=== PATIENT | female | born 1950 | race Hispanic/Latino ===

== ENCOUNTER → 2018-08-02 | Outpatient (CLI) | payer OTHER | END | disposition home or self-care (01) | LOC: SHCH 12:46 | PROVIDERS: ATTEND Internal Medicine Cardiovascular Disease | DX: I08.2 Rheumatic disorders of both aortic and tricuspid valves (principal) | CPT/HCPCS: 93306 ==

== ENCOUNTER → 2018-08-06 | Outpatient (CLI) | payer OTHER ==
[~2018-08-06] MED LIST: REGADENOSON 0.4 MG/5 ML PF SYG IVP SCH
== END | disposition home or self-care (01) ==
LOC: EDSEX → SHCH 08:09
PROVIDERS: ATTEND Internal Medicine Cardiovascular Disease
DX: R07.9 Chest pain, unspecified (principal)
CPT/HCPCS: 78452; 93017; 96374; A9500 ×2

== ENCOUNTER → 2018-08-08 | Outpatient (CLI) | payer OTHER | END | disposition home or self-care (01) | LOC: SHCH 14:56 → EDSEX 14:56 | PROVIDERS: ATTEND Internal Medicine Cardiovascular Disease | DX: R09.89 Other specified symptoms and signs involving the circulatory and respiratory systems (principal) | CPT/HCPCS: 93880 ==

== ENCOUNTER → 2018-08-29 | Outpatient (CLI) | payer OTHER ==
[~2018-08-29] MED LIST changes: +IOHEXOL-350 50ML VIAL IV ONE; -REGADENOSON 0.4 MG/5 ML PF SYG IVP SCH
== END | disposition home or self-care (01) ==
LOC: RAH 07:55
PROVIDERS: ATTEND Internal Medicine Cardiovascular Disease
DX: I65.23 Occlusion and stenosis of bilateral carotid arteries (principal); I70.90 Unspecified atherosclerosis; M47.892 Other spondylosis, cervical region
CPT/HCPCS: 70498; Q9967

== ENCOUNTER → 2019-03-20 | Outpatient (CLI) | payer OTHER ==
[~2019-03-20] MED LIST changes: +ASPI-555 PO; +ATOR40TA69 PO; +ENAL5TAB PO; +FURO20TA6 PO; -IOHEXOL-350 50ML VIAL IV ONE; +METF-446 PO; +METO25 PO; +NITR0.4T50 SL; +PRAV80TA21 PO; +TRAM50TA4 PO
== END | disposition home or self-care (01) ==
LOC: SHCH 08:02
PROVIDERS: ATTEND Internal Medicine Cardiovascular Disease
DX: I11.9 Hypertensive heart disease without heart failure (principal); I34.0 Nonrheumatic mitral (valve) insufficiency; Z95.2 Presence of prosthetic heart valve
CPT/HCPCS: 93306

== ENCOUNTER → 2019-06-02 | Outpatient (CLI) | payer OTHER ==
[~2019-06-02] VITALS: Ht 167.6 cm; Wt 64.9 kg
[~2019-06-02] MED LIST changes: +CLOP75TA32 PO; +ENAL10TA PO; +FURO40TA5 PO; +METO25TA6 PO; +NPH,100V SQ; +SODIUM CHLORIDE 0.9% 1000ML 1,000 ML IV SCH
[2019-06-02 13:30] LABS: BASOPHILS % (AUTO) 0.3 % (0.0-5.0); EOSINOPHILS % (AUTO) 0.6 % (0.0-8.0); HEMATOCRIT 40.3 % (42-54); LYMPHOCYTES % (AUTO) 17.6 % (21.0-51.0); MEAN CORPUSCULAR HEMOGLOBIN 31.2 pg (27.0-33.0); MEAN CORPUSCULAR HGB CONC 33.9 g/dL (32.0-36.0); MONOCYTES % (AUTO) 7.6 % (3.0-13.0); NEUTROPHILS % (AUTO) 73.9 % (40.0-77.0); PLATELET COUNT (AUTO) 333 K/uL (130-400); RED BLOOD CELL COUNT(AUTO) 4.38 MIL/uL (4.50-6.20); RED CELL DISTRIBUTION WIDTH 13.8 % (11.0-15.5); WHITE BLOOD COUNT (AUTO) 8.5 K/uL (4.8-10.8)
[2019-06-02 13:32] LABS: APPEARANCE,URINE Clear (CLEAR); BILIRUBIN,URINE Negative (NEGATIVE); COLOR,URINE Yellow (YELLOW); GLUCOSE, URINE (UA) Negative (NEGATIVE); KETONES,URINE Negative (NEGATIVE); LEUKOCYTE ESTERASE ,URINE Negative (NEGATIVE); NITRATE,URINE Negative (NEGATIVE); OCCULT BLOOD,URINE Negative (NEGATIVE); PH,URINE 7.5 (5.0-8.0); PROTEIN,URINE Negative (NEGATIVE)
[2019-06-02 13:36] LABS: CREATININE 0.9 mg/dL (0.5-1.5); POTASSIUM 4.6 mmol/L (3.5-5.1)
[2019-06-02 13:41] VITALS: BP 136/61
[2019-06-02 13:42] LABS: INR 1.06 (0.85-1.15); PARTIAL THROMBOPLASTIN TIME 28.1 SEC (26.3-35.5); PROTHROMBIN TIME 11.1 SEC (9.6-11.6)
== END | disposition home or self-care (01) ==
LOC: DAH 10:00 → EDSTATUS 12:00
PROVIDERS: ATTEND Internal Medicine Cardiovascular Disease
DX: Z01.818 Encounter for other preprocedural examination (principal); I65.23 Occlusion and stenosis of bilateral carotid arteries; M47.814 Spondylosis without myelopathy or radiculopathy, thoracic region; I70.0 Atherosclerosis of aorta; J98.11 Atelectasis; I21.9 Acute myocardial infarction, unspecified
CPT/HCPCS: 36415; 71045; 80048; 81003; 85025; 85610; 85730; 86850; 86900; 86901; 86922; 93005

== ENCOUNTER 2019-06-25 07:00 | Inpatient (IN) | payer OTHER ==
[~2019-06-25] VITALS: Ht 167.6 cm; Wt 70.3 kg
[~2019-06-25 07:00] MED LIST changes: -ENAL5TAB PO; -FURO20TA6 PO; -METO25 PO; -PRAV80TA21 PO; -SODIUM CHLORIDE 0.9% 1000ML 1,000 ML IV SCH
[2019-06-25 09:28] LABS: BASOPHILS % (AUTO) 0.4 % (0.0-5.0); EOSINOPHILS % (AUTO) 2.3 % (0.0-8.0); LYMPHOCYTES % (AUTO) 26.1 % (21.0-51.0); MEAN CORPUSCULAR HEMOGLOBIN 31.4 pg (27.0-33.0); MEAN CORPUSCULAR HGB CONC 33.6 g/dL (32.0-36.0); MEAN CORPUSCULAR VOLUME 93.4 fL (79-99); MONOCYTES % (AUTO) 10.3 % (3.0-13.0); NEUTROPHILS % (AUTO) 60.9 % (40.0-77.0); PLATELET COUNT (AUTO) 291 K/uL (130-400); RED BLOOD CELL COUNT(AUTO) 4.06 MIL/uL (4.50-6.20); RED CELL DISTRIBUTION WIDTH 13.8 % (11.0-15.5); WHITE BLOOD COUNT (AUTO) 8.1 K/uL (4.8-10.8)
[2019-06-25 09:32] LABS: APPEARANCE,URINE Clear (CLEAR); BILIRUBIN,URINE Negative (NEGATIVE); COLOR,URINE Dark Yellow (YELLOW); GLUCOSE, URINE (UA) Negative (NEGATIVE); KETONES,URINE Negative (NEGATIVE); LEUKOCYTE ESTERASE ,URINE Negative (NEGATIVE); NITRATE,URINE Negative (NEGATIVE); OCCULT BLOOD,URINE Negative (NEGATIVE); PROTEIN,URINE Trace mg/dL (NEGATIVE)
[2019-06-25 09:40] LABS: CREATININE 0.9 mg/dL (0.5-1.5); POTASSIUM 4.3 mmol/L (3.5-5.1)
[2019-06-25 09:43] LABS: INR 1.02 (0.85-1.15); PARTIAL THROMBOPLASTIN TIME 26.8 SEC (26.3-35.5); PROTHROMBIN TIME 10.7 SEC (9.6-11.6)
[2019-06-25 10:03] LABS: BACTERIA,URINE Rare /HPF (None Seen); MUCUS,URINE Many LPF (None Seen); RBC,URINE 0-1 /HPF (0-1); SQUAMOUS EPITHELIAL CELL,UR Rare /HPF (0-2)
--- NOTE | 2019-06-25 10:55 | NUR ---
SPOKE TO NAVEEN BENITES, CHEST XRAY FROM 06-02-19 OK, NO NEW CHEST XRAY NEEDED
[2019-06-25 11:00] VITALS: BP 144/72
[2019-06-27] VITALS (55 sets, daily range): BP systolic 97–172; BP diastolic 42–92
[2019-06-27] MEDS ORDERED: SODIUM CHLORIDE 0.9% 1000ML 1,000 ML IV ONE (05:58)
[2019-06-27] MEDS ORDERED: MIDAZOLAM HCL 1 MG/ML 2ML VIAL ONE (07:10)
[2019-06-27] MEDS ORDERED: LIDOCAINE PF 2% 5ML ABBOJECT ONE (07:10)
[2019-06-27] MEDS ORDERED: GLYCOPYRROLATE 1 MG/5 ML SYRINGE ONE (07:11)
[2019-06-27] MEDS ORDERED: ONDANSETRON HCL 4 MG/2 ML VIAL ONE (07:11)
[2019-06-27] MEDS ORDERED: ROCURONIUM 10MG/1ML SYR 10 MG/ML ML ONE (07:11)
[2019-06-27] MEDS ORDERED: PROPOFOL 10 MG/ML 20ML VIAL IV ONE (07:11)
[2019-06-27] MEDS ORDERED: FENTANYL CITRATE PF 50 MCG/1 ML 2ML VIAL ONE (07:12)
[2019-06-27] MEDS ORDERED: IODIXANOL 320 MG/ML 100 ML VIAL ONE (07:15)
[2019-06-27] MEDS ORDERED: HEPARIN SODIUM 1000UNIT/ML 10ML VIAL ONE (07:15)
[2019-06-27] MEDS ORDERED: ESMOLOL HCL 10 MG/ML 10 ML VIAL ONE (07:29)
[2019-06-27] MEDS ORDERED: CEFAZOLIN SODIUM 1 GM VIAL ONE ×2 (07:45→09:11)
[2019-06-27] MEDS ORDERED: ATROPINE SULFATE 0.1 MG/ML 10 ML SYG IVP ONE (08:00)
[2019-06-27] MEDS ORDERED: VASOPRESSIN 20 UNITS/ML 1ML VIAL ONE (08:52)
[2019-06-27] MEDS ORDERED: NEOSTIGMINE 5MG/5ML SYR IV ONE (09:35)
[2019-06-27] MEDS ORDERED: GLUCAGON 1MG KIT 1 MG ML IM PRN (10:00)
[2019-06-27] MEDS ORDERED: DEXTROSE 50%-WATER 50 ML DISP.SYRIN IV PRN (10:00)
[2019-06-27] MEDS ORDERED: NITROGLYCERIN 50 MG/D5% WATER 250 BOT IV PRN (10:00)
[2019-06-27] MEDS ORDERED: PHENYLEPHRINE HCL 10 MG in SODIUM CHLORIDE 0.9% 250 ML IV PRN (10:00)
[2019-06-27] MEDS ORDERED: TRAMADOL HCL 50 MG TABLET PO PRN (10:00)
[2019-06-27] MEDS ORDERED: NOREPINEPHRINE 4MG/NS 250ML 250 ML IV PRN (10:00)
[2019-06-27] MEDS ORDERED: NITROGLYCERIN 0.4 MG SL TAB SL SCH (10:00)
--- NOTE | 2019-06-27 10:10 | NUR ---
POST PROCEDURE Received pt to room 213 post procedure. Drowsy but arousable. Denies pain. SB on tele. VS as recorded. Received pt on IV levophed gtt @8mcg/min via PIV to LH. 18ga SL patent to LAC - IV gtt changed to this IV site. Left radial arterial line in place - acceptable waveform. Received pt on NRB mask @10lpm. Pt drowsy but arousable. Denies pain. Right neck drsg clean and dry. No evidence of oozing/bleeding or hematoma. Right groin was procedural access point. Dry gauze/tegaderm drsg in place. No bleeding/oozing or hematoma to right groin. BLE's warm to touch. Pedal pulses are palpable bilaterally. Reenforced ongoing bedrest order. Pt acknowledged understanding. Assessment completed/recorded.
--- NOTE | 2019-06-27 11:02 | NUR ---
FAMILY UPDATE Pt's family members in to see pt - updated. Questions addressed. Pt awake and interacting appropriately with them.
--- NOTE | 2019-06-27 11:15 | NUR ---
ADMITTING Spoke to ANDRA Major for [facility] - made her aware of pt's admission order to admit to the service of [facility]. Had previously spoken to ANDRA Ferraro, who asked that I inform on rounds as she would be rounding on ICU pts.
[2019-06-27] MEDS: PHENYLEPHRINE HCL 10 MG in SODIUM CHLORIDE 0.9% 250 ML IV PRN ×2 (11:24→14:15)
--- NOTE | 2019-06-27 11:24 | NUR ---
STATUS IV neosynephrine gtt started for BP maintenance. Initiated gtt @80mcg/min via LH 20ga PIV. Brisk blood return obtained from site - no evidence of IV site infiltration noted. Will wean off gtts as able. Pt remains on IV levophed gtt @8mcg/min via LAC PIV site. This site remains healthy.
[2019-06-27] MEDS: INSULIN HUMULIN R 100 UNIT/ML 3ML SQ SCH ×3 (11:30→20:38)
[2019-06-27] MEDS: ACETAMINOPHEN-CODEINE 300/30MG TAB PO PRN ×2 (15:01→20:38)
[2019-06-27] MEDS: CEFAZOLIN SODIUM 1 GM VIAL IVP SCH (16:16)
--- NOTE | 2019-06-27 16:19 | NUR ---
ASSESSMENT No acute changes in pt's overall assessment. Ongoing titration of IV vasopressors to maintain NIBP within set parameters. Currently, pt receiving IV neosynephrine @ 60mcg/min, levophed @2mcg/min. PIV x2 patent. Pt is in no acute distress. Reports ongoing burning discomfort at incisional site. Drsg remains clean, dry. SB on tele. VS as recorded. Right groin assessment unchanged - no bleeding/oozing or hematoma. HOB @30-degrees. Assessment otherwise as recorded.
[2019-06-27] MEDS ORDERED: PHENYLEPHRINE HCL 10 MG/ML 1ML VIAL IV ONE (17:58)
[2019-06-27] MEDS ORDERED: SODIUM CHLORIDE 0.9% 250 ML IV ONE (17:59)
[2019-06-27] MEDS ORDERED: FLU VACC QS2019-20 36MOS UP/PF 60 MCG/0.5 ML ML IM ONE (18:30)
[2019-06-27] MEDS: ATORVASTATIN CALCIUM 40 MG TABLET PO SCH (20:38)
[2019-06-27] MEDS: INSULIN NPH 100 UNIT/ML 3ML SQ SCH (20:46)
[2019-06-27] MEDS ORDERED: PHARMACY COMMUNICATION MISC SCH (21:00)
[2019-06-28] VITALS (53 sets, daily range): BP systolic 75–149; BP diastolic 30–68
[2019-06-28] MEDS: CEFAZOLIN SODIUM 1 GM VIAL IVP SCH
[2019-06-28 04:37] LABS: MEAN CORPUSCULAR HEMOGLOBIN 31.6 pg (27.0-33.0); MEAN CORPUSCULAR HGB CONC 33.4 g/dL (32.0-36.0); MEAN CORPUSCULAR VOLUME 94.4 fL (79-99); PLATELET COUNT (AUTO) 279 K/uL (130-400); RED BLOOD CELL COUNT(AUTO) 3.82 MIL/uL (4.50-6.20); RED CELL DISTRIBUTION WIDTH 13.6 % (11.0-15.5); WHITE BLOOD COUNT (AUTO) 11.7 K/uL (4.8-10.8)
[2019-06-28 04:43] LABS: CREATININE 0.9 mg/dL (0.5-1.5); POTASSIUM 3.9 mmol/L (3.5-5.1)
[2019-06-28] MEDS: PHENYLEPHRINE HCL 10 MG in SODIUM CHLORIDE 0.9% 250 ML IV PRN (05:48)
[2019-06-28] MEDS: INSULIN HUMULIN R 100 UNIT/ML 3ML SQ SCH ×3 (06:36→21:25)
--- NOTE | 2019-06-28 08:49 | NUR ---
STATUS Reports "blurry vision" without other reported symptoms. SR on tele. VS as recorded. Room air saturation 89% - placed on NC O2 @2lpm. Pt is in no acute distress. Vasopressors remain off at present - will reassess need for resumption. Pt reassured.
[2019-06-28] MEDS ORDERED: FUROSEMIDE 40 MG TABLET PO SCH (09:00)
[2019-06-28] MEDS ORDERED: METOPROLOL TARTRATE 25 MG TAB PO SCH (09:00)
[2019-06-28] MEDS ORDERED: FLU VACC QS2019-20 36MOS UP/PF 60 MCG/0.5 ML ML IM SCH (09:00)
[2019-06-28] MEDS ORDERED: ENALAPRIL MALEATE 10 MG TABLET PO SCH (09:00)
--- NOTE | 2019-06-28 09:00 | NUR ---
STATUS In spite of current NIBP readings, pt remains alert, coherent. Ongoing blurry vision but no additional symptoms or deficits noted. Will continue to observe and report to MD as needed.
--- NOTE | 2019-06-28 09:19 | NUR ---
MD ROUNDS Plan of care explained to pt and family at bedside. Questions invited/addressed by MD. Pt acknowledges understanding of information discussed.
[2019-06-28] MEDS ORDERED: SODIUM CHLORIDE 0.9% 1000ML 1,000 ML IV SCH (09:21)
[2019-06-28] MEDS ORDERED: SODIUM CHLORIDE 0.9% 500ML 500 ML IV ONE (09:24)
[2019-06-28] MEDS: CLOPIDOGREL BISULFATE 75 MG TAB PO SCH (09:52)
[2019-06-28] MEDS: ASPIRIN 81 MG EC TAB PO SCH (09:52)
[2019-06-28] MEDS ORDERED: SODIUM CHLORIDE 0.9% 1000ML 1,000 ML IV ONE (11:56)
--- NOTE | 2019-06-28 12:00 | NUR ---
ASSESSMENT No acute changes in overall assessment. SR on tele. VS maintained. No complaints voiced by pt.
--- NOTE | 2019-06-28 13:30 | NUR ---
ACTIVITY Ambulated in hallway with stand-by assistance from this RN. Pt with fair activity tolerance. Pt assisted back to chair. Positioned for comfort. Needed items within reach.
--- NOTE | 2019-06-28 15:00 | NUR ---
STATUS Back to bed with assistance. Positioned for comfort.
--- NOTE | 2019-06-28 17:01 | NUR ---
D/C PLAN CM spoke to pt regarding d/c plan. Pt is ind. and lives with spouse. States spouse can assist in care as needed. Plan to home. No needs verbalized or identified. CM to f/u. Addendum: 06/28/19 at 1704 by VENUS DEL VALLE CM Amended: Links added.
--- NOTE | 2019-06-28 17:50 | NUR ---
TRANSFER Transferred by chair to room 219 - PCCU status. Oriented to room. Needed items placed within reach.
--- NOTE | 2019-06-28 19:30 | NUR ---
ASSESSMENT PT AAOX4, SITTING UP IN CHAIR, WATCHING TV. CURRENTLY DENIES ANY PAIN. DENIES S.O.B., CP,. PT PLEASANT AND COOPERATIVE. MONITOR REVIEWED AND ADJUSTED. DONNIE REVIEWED AND WITHIN REACH. WHITE BOARD UP-DATED.
[2019-06-28] MEDS: ATORVASTATIN CALCIUM 40 MG TABLET PO SCH (21:20)
[2019-06-28] MEDS: INSULIN NPH 100 UNIT/ML 3ML SQ SCH (21:22)
[2019-06-29] VITALS (9 sets, daily range): BP systolic 99–127; BP diastolic 46–55
[2019-06-29] MEDS: ACETAMINOPHEN-CODEINE 300/30MG TAB PO PRN (05:46)
[2019-06-29] MEDS: INSULIN HUMULIN R 100 UNIT/ML 3ML SQ SCH (06:38)
[2019-06-29] MEDS: CLOPIDOGREL BISULFATE 75 MG TAB PO SCH (09:27)
[2019-06-29] MEDS: ASPIRIN 81 MG EC TAB PO SCH (09:27)
--- NOTE | 2019-06-29 09:27 | NUR ---
PT CARE AM meds administered as indicated. BP meds, diuretic not administered secondary to marginal NIBP. Will discuss with MD on rounds. After med administration, pt ambulated with hallway with stand-by assistance from this RN. Pt with good activity tolerance.
[2019-06-29] MEDS ORDERED: FURO20TA4 PO (14:49)
[2019-06-29] MEDS ORDERED: ENAL5TAB PO (14:49)
--- NOTE | 2019-06-29 15:00 | NUR ---
DISCHARGE Discharge instructions discussed with pt, including post procedure follow up, activity restrictions, incision care and changes made to home medication regimen. Pt voiced understanding of information discussed. No questions or complaints voiced by pt.
--- NOTE | 2019-06-29 15:48 | NUR ---
DISCHARGE Discharged to home with family. No complaints voiced by pt at time of discharge.
== END 2019-06-29 15:49 | disposition home or self-care (01) | DRG 36 ==
LOC: EDSTATUS 08:00 → DAHIP 06-27 05:30 → 2CV 06-27 09:41 → 2CH 06-28 17:53
PROVIDERS: ADMIT Internal Medicine Critical Care Medicine; ATTEND Internal Medicine Critical Care Medicine
PROC: 037K3DZ Dilation of Right Internal Carotid Artery with Intraluminal Device, Percutaneous Approach (ICD-10-PCS; principal; 2019-06-27 07:00)
PROC: B3191ZZ Fluoroscopy of Right External Carotid Artery using Low Osmolar Contrast (ICD-10-PCS; 2019-06-27 07:00)
PROC: B3161ZZ Fluoroscopy of Right Internal Carotid Artery using Low Osmolar Contrast (ICD-10-PCS; 2019-06-27 07:00)
PROC: 3E02340 Introduction of Influenza Vaccine into Muscle, Percutaneous Approach (ICD-10-PCS; 2019-06-28)
DX: I65.23 Occlusion and stenosis of bilateral carotid arteries (principal); E11.9 Type 2 diabetes mellitus without complications; E78.00 Pure hypercholesterolemia, unspecified; E78.5 Hyperlipidemia, unspecified; I10 Essential (primary) hypertension; I25.5 Ischemic cardiomyopathy; I25.10 Atherosclerotic heart disease of native coronary artery without angina pectoris; I25.2 Old myocardial infarction; Z79.02 Long term (current) use of antithrombotics/antiplatelets; Z79.4 Long term (current) use of insulin; Z79.82 Long term (current) use of aspirin; Z79.899 Other long term (current) drug therapy; Z87.891 Personal history of nicotine dependence; Z95.1 Presence of aortocoronary bypass graft; Z95.3 Presence of xenogenic heart valve; Z23 Encounter for immunization
CPT/HCPCS: 36415; 37215; 71046; 80048; 81001; 82948; 83880; 85025; 85027; 85347; 85610; 85730; 86850; 86900; 86901; 86922; 93005; C1725; G0378; J0461; J0690; J1644; J1815; J2001; J2250; J2370; J2405; J2704; J2710; J3010; J3490; J7030; J7040; Q2035; Q9967

== ENCOUNTER → 2019-10-08 | Outpatient (CLI) | payer OTHER ==
[~2019-10-08] MED LIST changes: -ENAL10TA PO; +ENAL5TAB PO; +FURO20TA4 PO; -FURO40TA5 PO
== END | disposition home or self-care (01) ==
LOC: SHCH 08:34
PROVIDERS: ATTEND Internal Medicine Cardiovascular Disease
DX: I65.23 Occlusion and stenosis of bilateral carotid arteries (principal); Z96.89 Presence of other specified functional implants
CPT/HCPCS: 93880

== ENCOUNTER 2020-09-13 05:50 | Day surgery (SDC) | payer OTHER ==
[~2020-09-13] VITALS: Ht 167.6 cm; Wt 64.4 kg
[2020-09-13] VITALS (7 sets, daily range): BP systolic 128–159; BP diastolic 64–81
[~2020-09-13 05:50] MED LIST changes: -ASPI-555 PO; +ASPI-556 PO; -ENAL5TAB PO; +ENAL5TAB17 PO
[2020-09-13] MEDS ORDERED: SODIUM CHLORIDE 0.9% 1000ML 1,000 ML IV ONE (06:55)
[2020-09-13] MEDS ORDERED: PROPOFOL 10 MG/ML 20ML VIAL IV ONE (06:57)
[2020-09-13] MEDS ORDERED: GLYCOPYRROLATE 1 MG/5 ML SYRINGE ONE (06:58)
== END 2020-09-13 08:05 | disposition home or self-care (01) ==
LOC: DAH 05:50 → ENDO 05:50
PROVIDERS: ATTEND Internal Medicine Gastroenterology
DX: Z12.11 Encounter for screening for malignant neoplasm of colon (principal); K57.30 Diverticulosis of large intestine without perforation or abscess without bleeding; I25.10 Atherosclerotic heart disease of native coronary artery without angina pectoris; I65.21 Occlusion and stenosis of right carotid artery; E78.5 Hyperlipidemia, unspecified; I10 Essential (primary) hypertension; E11.9 Type 2 diabetes mellitus without complications; I45.10 Unspecified right bundle-branch block; Z86.010 Personal history of colon polyps; Z95.1 Presence of aortocoronary bypass graft; Z95.5 Presence of coronary angioplasty implant and graft; Z20.828 Contact with and (suspected) exposure to other viral communicable diseases
CPT/HCPCS: 82948; 93005; A4215; A4221; A4222; A4223; A4606; A4620; A4657; A4663; C9803; G0105; J2704; J3490; J7030; U0003

== ENCOUNTER → 2022-05-11 | Outpatient (CLI) | payer OTHER | END | disposition home or self-care (01) | LOC: SHCH 15:04 | PROVIDERS: ATTEND Internal Medicine Cardiovascular Disease | DX: G45.1 Carotid artery syndrome (hemispheric) (principal) | CPT/HCPCS: 93880 ==